=== PATIENT | female | born 1975 | race Caucasian/White ===

== ENCOUNTER 2017-11-25 14:11 | Emergency (ER) | payer OTHER ==
[~2017-11-25] VITALS: Ht 172.7 cm; Wt 102.2 kg
[~2017-11-25 14:11] MED LIST: ENDOCET 5-3251 EACH PO
[2017-11-25] MEDS ORDERED: KEFLEX500 MG PO (16:44)
[2017-11-25 17:46] VITALS: BP 119/80
== END 2017-11-25 17:48 | disposition home or self-care (01) ==
LOC: EME 14:11
DX: I80.02 Phlebitis and thrombophlebitis of superficial vessels of left lower extremity (principal); I83.92 Asymptomatic varicose veins of left lower extremity; E11.9 Type 2 diabetes mellitus without complications; F17.200 Nicotine dependence, unspecified, uncomplicated
CPT/HCPCS: 93971; 99281; 99284